=== PATIENT | male | born 1965 | race African-American/Black ===

== ENCOUNTER 2018-02-06 23:47 | Emergency (ER) | payer MEDICARE, OTHER ==
[~2018-02-06] VITALS: Ht 190.5 cm; Wt 110.7 kg
[2018-02-07 00:20] VITALS: BP 156/100
[2018-02-07] MEDS ORDERED: DiphenhydrAMINE 50mg/ml Inj IM ONE (00:30)
[2018-02-07] MEDS ORDERED: HYDROmorphone 1mg/ml Carpuject IM ONE (00:30)
[2018-02-07 00:50] VITALS: BP 156/100
--- NOTE | 2018-02-07 01:05 | Emergency Room Report ---
History of Present Illness General Chief Complaint: Pain Source: Patient Present Illness HPI 52-year-old male presents ED for evaluation. Patient states that he is having neck back and hip pain status post fall 1 week ago. States he fell down 2 flights of stairs. States he had multiple imaging studies done at another hospital which were negative. States he has continued pain. History of bilateral hip replacement. Pain is throbbing, 10 out of 10, nonradiating. No other aggravating or relieving factors. Denies any other associated symptoms Allergies: Coded Allergies: AMOXICILLIN (Verified Allergy, Unknown, 03/11/09) KETOROLAC (Verified Allergy, Unknown, 03/11/09) PROCHLORPERAZINE (Verified Allergy, Unknown, 03/11/09) Patient History Past Medical History: COPD Past Surgical History: other - bilateral hip replacement Pertinent Family History: none Social History: Denies: smoking, alcohol use, drug use Immunizations: UTD Reviewed Nursing Documentation: PMH: Agreed; PSxH: Agreed Nursing Documentation-PMH Hx COPD: Yes Review of Systems All Other Systems: negative except mentioned in HPI Physical Exam Vital Signs Date Time Temp Pulse Resp B/P (MAP) Pulse Ox O2 Delivery O2 Flow Rate FiO2 02/07/18 00:00 98.0 98 18 156/100 98 Room Air 98.1 Sp02 EP Interpretation: reviewed, normal General Appearance: no apparent distress, alert, GCS 15, non-toxic Head: normocephalic, atraumatic Eyes: bilateral eye normal inspection, bilateral eye PERRL ENT: hearing grossly normal, normal pharynx, no angioedema, normal voice Neck: full range of motion, supple/symm/no masses Respiratory: chest non-tender, lungs clear, normal breath sounds, speaking full sentences Cardiovascular #1: regular rate, rhythm, no edema Cardiovascular #2: 2+ carotid (R), 2+ carotid (L), 2+ radial (R), 2+ radial (L) , 2+ dorsalis pedis (R), 2+ dorsalis pedis (L) Gastrointestinal: normal bowel sounds, non tender, soft, non-distended, no guarding, no rebound Rectal: deferred Genitourinary: normal inspection, no CVA tenderness Musculoskeletal: back normal, gait/station normal, normal range of motion, non- tender Neurologic: alert, oriented x3, responsive, motor strength/tone normal, sensory intact, speech normal Psychiatric: judgement/insight normal, memory normal, mood/affect normal, no suicidal/homicidal ideation Reflexes: 3+ bicep (R), 3+ bicep (L), 3+ tricep (R), 3+ tricep (L), 3+ knee (R) , 3+ knee (L) Skin: normal color, no rash, warm/dry, well hydrated Lymphatic: no adenopathy Medical Decision Making Diagnostic Impression: Primary Impression: Chronic pain Qualified Codes: G89.29 - Other chronic pain ER Course Hospital Course 52-year-old male presents ED complaining of neck pain back pain and hip pain status post fall times one week Differential diagnoses include: fx, dislocation, contusion Clinical course Patient placed on stretcher. After initial history and physical I offered to order CT imaging of his neck and back and pelvis. Patient states ER he had CTs done which were negative. Patient is asking for 2 mg of Dilaudid with 50 mg of Benadryl. I reviewed EMR patient has had prior history of multiple visits for pain related complaints but last visit was in 2010 Reviewed cures; patient is receiving multiple narcotic prescriptions on a monthly basis I agreed to provide him with 1 mg Dilaudid. Patient will be subsequently discharged. No additional imaging. No prescriptions. Patient displays understanding Diagnosis - chronic pain Stable and discharged to home. Followup with PMD. Return to ED if symptoms recur or worsen Last Vital Signs Date Time Temp Pulse Resp B/P (MAP) Pulse Ox O2 Delivery O2 Flow Rate FiO2 02/07/18 00:50 98.0 98 18 156/100 98 Room Air 208.4 Status: improved Disposition: HOME, SELF-CARE Condition: Stable Patient Instructions: Chronic Pain Chandana Andre MD Feb 07, 2018 01:05
== END 2018-02-07 00:55 | disposition home or self-care (01) ==
LOC: EMR 02-07 00:10
DX: M54.2 Cervicalgia (principal); M54.9 Dorsalgia, unspecified; M25.552 Pain in left hip; M25.551 Pain in right hip; W10.9XXA Fall (on) (from) unspecified stairs and steps, initial encounter; G89.29 Other chronic pain; Y92.9 Unspecified place or not applicable; Z96.643 Presence of artificial hip joint, bilateral
CPT/HCPCS: 96372; 99283; J1170; J1200

== ENCOUNTER 2018-05-29 05:22 | Emergency (ER) | payer MEDICARE, OTHER ==
[~2018-05-29] VITALS: Ht 190.5 cm; Wt 113.4 kg
[2018-05-29 05:25] VITALS: BP 125/80
[2018-05-29] MEDS ORDERED: QUETIAPINE FUMA25 MG ORAL (05:27)
[2018-05-29] MEDS ORDERED: BENADRYL25 MG ORAL (05:27)
[2018-05-29] MEDS ORDERED: CELEXA20 MG ORAL (05:27)
[2018-05-29] MEDS ORDERED: HYDROMORPHONE ER8 MG PO (05:27)
[2018-05-29] MEDS ORDERED: DEPAKOTE250 MG PO (05:27)
[2018-05-29] MEDS ORDERED: VALIUM2 MG ORAL (05:27)
[2018-05-29] MEDS ORDERED: RESTORIL7.5 MG ORAL (05:27)
[2018-05-29] MEDS ORDERED: HYDROmorphone 1mg/ml Carpuject IM ONE (05:45)
[2018-05-29] MEDS ORDERED: DiphenhydrAMINE 50mg/ml Inj IM ONE (05:45)
[2018-05-29 06:44] VITALS: BP 152/80
[2018-05-29 07:33] VITALS: BP 110/87
--- NOTE | 2018-05-31 06:51 | Emergency Room Report ---
History of Present Illness General Chief Complaint: Pain Source: Patient Present Illness HPI 52-year-old male presents ED for evaluation. Patient brought in by ambulance for bilateral hip pain. Patient had hip replacements performed in 2015 in 2016. Patient states he's been having persistent pain and states he needs revision of both hips. Patient is legally blind. Patient states that he ran out of his pain meds. Does not have an appointment with his PMD yet. Pain is throbbing, 9 out of 10, nonradiating. Denies any recent injury or trauma. No other aggravating relieving factors. Denies any other associated symptoms Allergies: Coded Allergies: AMOXICILLIN (Verified Allergy, Unknown, 03/11/09) KETOROLAC (Verified Allergy, Unknown, 03/11/09) PROCHLORPERAZINE (Verified Allergy, Unknown, 03/11/09) Patient History Past Medical History: psych hx Past Surgical History: other - bilateral hip replacements Pertinent Family History: none Social History: Denies: smoking, alcohol use, drug use Immunizations: UTD Reviewed Nursing Documentation: PMH: Agreed; PSxH: Agreed Nursing Documentation-PMH Hx COPD: Yes History Of Psychiatric Problem: Yes - bipolar, schizoeffective Review of Systems All Other Systems: negative except mentioned in HPI Physical Exam Vital Signs Date Time Temp Pulse Resp B/P (MAP) Pulse Ox O2 Delivery O2 Flow Rate FiO2 05/29/18 05:21 98.2 72 14 125/80 97 Room Air 98.2 Sp02 EP Interpretation: reviewed, normal General Appearance: no apparent distress, alert, GCS 15, non-toxic Head: normocephalic Eyes: bilateral eye other - legally blind ENT: hearing grossly normal, normal pharynx, no angioedema, normal voice Neck: normal inspection Respiratory: normal inspection Cardiovascular #1: normal inspection Gastrointestinal: normal inspection Rectal: deferred Genitourinary: no CVA tenderness Musculoskeletal: normal range of motion, tender - bilateral hip Neurologic: alert, oriented x3, responsive, motor strength/tone normal, sensory intact, speech normal Psychiatric: judgement/insight normal, memory normal, no suicidal/homicidal ideation, anxious Skin: normal inspection Lymphatic: normal inspection Medical Decision Making Diagnostic Impression: Primary Impression: Chronic pain Qualified Codes: G89.29 - Other chronic pain ER Course Hospital Course 52-year-old male presents ED complaining of bilateral hip pain. No evidence of trauma Differential diagnoses include: fracture, dislocation, contusion Clinical course Patient placed on stretcher. After initial history and physical I reviewed EMR. Patient had been here once recently for similar presentation of pain. CURES shows extensive narcotic prescriptions on a monthly basis I discussed this with the patient. I agreed to provide him with one dose of pain medication here but I cannot provide him with prescriptions at this time. Patient needs to follow-up with his pain management for his prescriptions Patient agrees. Pain improved and patient will be safely discharged back to home via ambulance Diagnosis - chronic pain Stable and discharged to home. Followup with PMD. Return to ED if symptoms recur or worsen Last Vital Signs Date Time Temp Pulse Resp B/P (MAP) Pulse Ox O2 Delivery O2 Flow Rate FiO2 05/29/18 07:33 98.2 67 14 110/87 95 Room Air 98.2 Status: improved Disposition: HOME, SELF-CARE Condition: Stable Referrals: NOT CHOSEN IPA/,REFERRING (PCP) Patient Instructions: Chronic Pain Chandana Andre MD May 31, 2018 06:51
== END 2018-05-29 07:34 | disposition home or self-care (01) ==
LOC: EDBD 05:22 → EMR 05:38
DX: G89.29 Other chronic pain (principal); M25.552 Pain in left hip; M25.551 Pain in right hip; J44.9 Chronic obstructive pulmonary disease, unspecified; F25.9 Schizoaffective disorder, unspecified; Z88.0 Allergy status to penicillin; Z88.8 Allergy status to other drugs, medicaments and biological substances; F31.9 Bipolar disorder, unspecified
CPT/HCPCS: 96372; 99283; J1170; J1200

== ENCOUNTER 2019-04-08 03:18 | Emergency (ER) | payer MEDICARE, OTHER ==
[~2019-04-08] VITALS: Ht 190.5 cm; Wt 157.9 kg
[~2019-04-08 03:18] MED LIST: BENADRYL25 MG ORAL; CELEXA20 MG ORAL; DEPAKOTE250 MG PO; HYDROMORPHONE ER8 MG PO; QUETIAPINE FUMA25 MG ORAL; RESTORIL7.5 MG ORAL; VALIUM2 MG ORAL
--- NOTE | 2019-04-08 03:19 | NUR ---
ED Nurse Note: pt brought in by FRANCOIS from bus stop c/c headache and dizziness, pt states he's been having syncopal episode and keeps "blacking out" this week. pt Aa&ox4, gcs=15, skin warm and dry, resp even and unlabored on RA, -n/v/d, ambulates w/ steady gait, will cont monitor.
[2019-04-08 03:41] VITALS: BP 141/74
[2019-04-08] MEDS ORDERED: Acetaminophen 500mg (ES) tab ORAL ONE (04:00)
[2019-04-08] MEDS ORDERED: IBUPROFEN600 MG ORAL (04:00)
--- NOTE | 2019-04-08 04:00 | Emergency Room Report ---
History of Present Illness General Chief Complaint: Headache Source: Patient Present Illness HPI This is a 53-year-old -[place] male who is blind and has chronic pain. He presents with chief complaint of headache. He said this is a chronic issue for him. He had multiple work-up in the past. Usually take oxycodone but his doctor referred him to pain management patients that has been out of his pain medication for the last couple months. Been going to different hospital for pain. Said that his pain is so severe that he passed out. Denies any trauma. Also complained of bilateral hip pain from previous surgery. No nausea no vomiting. Nothing made it better. Nothing made it worse. Allergies: Coded Allergies: AMOXICILLIN (Verified Allergy, Unknown, 03/11/09) KETOROLAC (Verified Allergy, Unknown, 03/11/09) PROCHLORPERAZINE (Verified Allergy, Unknown, 03/11/09) Patient History Past Medical History: see triage record, old chart reviewed Past Surgical History: other Pertinent Family History: none Social History: Denies: smoking Immunizations: other Reviewed Nursing Documentation: PMH: Agreed; PSxH: Agreed Nursing Documentation-PMH Past Medical History: No History, Except For Hx Asthma: Yes Hx COPD: Yes History Of Psychiatric Problem: Yes - BIPOLAR Review of Systems Eye: Denies: eye pain, blurred vision ENT: Denies: ear pain, nose congestion, throat swelling Respiratory: Denies: cough, shortness of breath Cardiovascular: Denies: chest pain, palpitations Gastrointestinal: Denies: abdominal pain, diarrhea, nausea, vomiting Musculoskeletal: Denies: back pain, joint pain Skin: Denies: rash Neurological: Reports: headache; Denies: numbness Endocrine: Denies: increased thirst, increased urine Hematologic/Lymphatic: Denies: easy bruising All Other Systems: negative except mentioned in HPI Physical Exam Vital Signs Date Time Temp Pulse Resp B/P (MAP) Pulse Ox O2 Delivery O2 Flow Rate FiO2 04/08/19 03:16 98.6 98 18 141/74 (96) 100 Room Air Vitals normal Sp02 EP Interpretation: reviewed, normal General Appearance: well appearing, no apparent distress, alert Head: normocephalic, atraumatic Eyes: bilateral eye other - Pt is blind ENT: hearing grossly normal, normal pharynx Neck: full range of motion, supple, no meningismus Respiratory: chest non-tender, lungs clear, normal breath sounds Cardiovascular #1: regular rate, rhythm, no murmur Gastrointestinal: normal bowel sounds, non tender, no mass, no organomegaly, no bruit, non-distended Musculoskeletal: back normal, gait/station normal, normal range of motion Psychiatric: mood/affect normal Skin: warm/dry Medical Decision Making Diagnostic Impression: Primary Impression: Headache Qualified Codes: R51 - Headache Additional Impression: Chronic pain Qualified Codes: G89.4 - Chronic pain syndrome ER Course Pt presents With chronic pain. No focal deficit. No fever. No evidence of meningitis, bleed or neoplastic process. Last Vital Signs Date Time Temp Pulse Resp B/P (MAP) Pulse Ox O2 Delivery O2 Flow Rate FiO2 04/08/19 03:41 98.7 87 18 141/74 100 Room Air Status: improved Disposition: HOME, SELF-CARE Condition: Stable Scripts Ibuprofen* (MOTRIN*) 600 Mg Tablet 600 MG ORAL THREE TIMES A DAY, #30 TAB 0 Refills Prov: Dutch Donaldson MD 04/08/19 Patient Instructions: General Headache Without Cause Additional Instructions: Follow-up with your doctor for refill your pain medication. Return if symptoms worsen. Dutch Donaldson MD Apr 08, 2019 04:00
--- NOTE | 2019-04-08 05:55 | NUR ---
ED Nurse Note: pt cleared to be d/c per ERMD, pt discharge and aftercare instruction provided w/ prescription, pt education done via discussion and handout, pt advised to follow up with pcp or return to ed if changes in condition, pt verbalized understanding and agrees with plan, pt given sandwich and juice, pt states he is going to take bus home, pt ambulatory w/ steady gait, left w/ all belongings.
[2019-04-08 05:57] VITALS: BP 140/76
== END 2019-04-08 05:57 | disposition home or self-care (01) ==
LOC: EDBD 03:18 → EMR 04:14
DX: R51 Headache (principal); G89.4 Chronic pain syndrome; M25.552 Pain in left hip; M25.551 Pain in right hip; J44.9 Chronic obstructive pulmonary disease, unspecified; Z88.0 Allergy status to penicillin; Z88.8 Allergy status to other drugs, medicaments and biological substances
CPT/HCPCS: 93005; 99282

== ENCOUNTER 2019-09-20 04:37 | Emergency (ER) | payer MEDICARE, OTHER ==
[~2019-09-20] VITALS: Ht 190.5 cm; Wt 112.5 kg
[~2019-09-20 04:37] MED LIST changes: +IBUPROFEN600 MG ORAL
--- NOTE | 2019-09-20 04:40 | NUR ---
ED Nurse Note: Patient brought in by private ambulance, RA 56, from home with complaints of chronic back pain, hip pain (in need of surgery) and migraine. Will continue to monitor.
[2019-09-20 04:44] VITALS: BP 149/88
[2019-09-20] MEDS ORDERED: XANAX0.25 MG ORAL (04:44)
--- NOTE | 2019-09-20 04:57 | Emergency Room Report ---
History of Present Illness General Chief Complaint: Pain Source: Patient Present Illness HPI This is a 53-year-old male with history of chronic pain. He is legally blind. He complained of migraine headache. There is a chronic issue for him. He said he is usually take [place] or oxycodone at home. Pain is been there for 2 days. Pain is diffuse. He has no fever chills but has nausea but no vomiting. No diarrhea. Also complained of bilateral hip pain. He said he has hip surgery in the past and knee surgery for scar tissue. Does not have a pain specialist. Denies trauma. Denies any incontinence of bowel or urine. Patient requesting 3 mg of Dilaudid and 50 mg of benadryl. Allergies: Coded Allergies: AMOXICILLIN (Verified Allergy, Unknown, 03/11/09) KETOROLAC (Verified Allergy, Unknown, 03/11/09) PENICILLINS (Verified Allergy, Unknown, 09/20/19) PROCHLORPERAZINE (Verified Allergy, Unknown, 03/11/09) Patient History Past Medical History: see triage record, old chart reviewed Past Surgical History: other Pertinent Family History: none Social History: Denies: smoking Immunizations: other Reviewed Nursing Documentation: PMH: Agreed; PSxH: Agreed Nursing Documentation-PMH Past Medical History: No History, Except For Hx Asthma: Yes Hx COPD: Yes Review of Systems Eye: Denies: eye pain, blurred vision ENT: Denies: ear pain, nose congestion, throat swelling Respiratory: Denies: cough, shortness of breath Cardiovascular: Denies: chest pain, palpitations Gastrointestinal: Denies: abdominal pain, diarrhea, nausea, vomiting Musculoskeletal: Reports: joint pain; Denies: back pain Skin: Denies: rash Neurological: Reports: headache; Denies: numbness Endocrine: Denies: increased thirst, increased urine Hematologic/Lymphatic: Denies: easy bruising All Other Systems: negative except mentioned in HPI Physical Exam Vital Signs Date Time Temp Pulse Resp B/P (MAP) Pulse Ox O2 Delivery O2 Flow Rate FiO2 09/20/19 04:39 97.9 66 16 149/88 (108) 97 Room Air Vitals with high blood pressure Sp02 EP Interpretation: reviewed, normal General Appearance: well appearing, no apparent distress, alert Head: normocephalic, atraumatic ENT: hearing grossly normal, normal pharynx Neck: full range of motion, supple, no meningismus Respiratory: chest non-tender, lungs clear, normal breath sounds Cardiovascular #1: regular rate, rhythm, no murmur Gastrointestinal: normal bowel sounds, non tender, no mass, no organomegaly, no bruit, non-distended Musculoskeletal: back normal, normal range of motion Psychiatric: mood/affect normal Medical Decision Making Diagnostic Impression: Primary Impression: Headache Qualified Codes: R51 - Headache Additional Impression: Chronic pain Qualified Codes: G89.4 - Chronic pain syndrome ER Course Patient presents with chief complaint of chronic pain. I see no new complaint. He said he had a work-up in the past with CT head. No evidence of meningitis , bleed or neoplastic process. No trauma to warrant x-rays of his hip. No evidence of any dislocation or septic joint. Will discharge home. Last Vital Signs Date Time Temp Pulse Resp B/P (MAP) Pulse Ox O2 Delivery O2 Flow Rate FiO2 09/20/19 04:44 97.9 78 16 149/88 97 Room Air Status: improved Disposition: HOME, SELF-CARE Condition: Stable Additional Instructions: Follow-up with your doctor in 7 days. You may benefit from a pain specialist referral. Return if symptoms worsen. Dutch Donaldson MD Sep 20, 2019 04:57
[2019-09-20] MEDS ORDERED: HYDROcodone/Acetamin 5/325 tab ORAL ONE (05:00)
--- NOTE | 2019-09-20 05:21 | NUR ---
ED Nurse Note: Patient tolerated medication administration well. patient plans to be picked up in the morning by a friend later in the morning. Will continue to monitor patient for chronic pain.
[2019-09-20 06:41] VITALS: BP 149/88
--- NOTE | 2019-09-20 06:41 | NUR ---
ED Nurse Note: Patient departed with all belongings.
[2019-09-20] MEDS ORDERED: ACETAMINOPHEN325 M1 ORAL (10:45)
== END 2019-09-20 06:41 | disposition home or self-care (01) ==
LOC: EDBD 04:37 → EMR 05:24
DX: G89.4 Chronic pain syndrome (principal); R51 Headache; J44.9 Chronic obstructive pulmonary disease, unspecified; H54.8 Legal blindness, as defined in USA; Z88.1 Allergy status to other antibiotic agents; Z88.0 Allergy status to penicillin; Z88.8 Allergy status to other drugs, medicaments and biological substances
CPT/HCPCS: 99282

== ENCOUNTER 2019-09-20 10:10 | Emergency (ER) | payer MEDICARE, OTHER ==
[~2019-09-20] VITALS: Ht 190.5 cm; Wt 111.1 kg
[~2019-09-20 10:10] MED LIST changes: +XANAX0.25 MG ORAL
[2019-09-20] MEDS ORDERED: ACETAMINOPHEN325 M1 ORAL (10:45)
[2019-09-20] MEDS ORDERED: Acetaminophen 500mg (ES) tab ORAL ONE (10:45)
--- NOTE | 2019-09-20 10:53 | Emergency Room Report ---
History of Present Illness General Chief Complaint: Pain Source: Patient Present Illness HPI Disclaimer: Please note that this report is being documented using [employer] technology. This can lead to erroneous entry secondary to incorrect interpretation by the dictating instrument. HPI: 54-year-old male with a history of prior stroke, chronic hip pain and chronic headaches presents for evaluation of headache and hip pain. He was seen in the emergency department several hours ago with similar complaints. There is no new trauma. States his headache is generalized complaining of some photophobia which is common of his typical migraine headaches. He does not follow with anyone for migraines and does not regularly see a neurologist. 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 Denies any numbness or tingling. Denies any changes in stability. States he usually takes oxycodone for his pain but he ran out. He is requesting Dilaudid, IV Benadryl which he states usually resolves his headaches. Denies any fever, neck stiffness, rash, vomiting or diarrhea currently. PMH: Chronic headaches, chronic hip pain, strokes, psychiatric disorder, legally blind PSH: Bilateral hip replacement Allergies: Amoxicillin, Toradol, penicillin Social Hx: Denies drug or alcohol abuse Allergies: Coded Allergies: AMOXICILLIN (Verified Allergy, Unknown, 03/11/09) KETOROLAC (Verified Allergy, Unknown, 03/11/09) PENICILLINS (Verified Allergy, Unknown, 09/20/19) PROCHLORPERAZINE (Verified Allergy, Unknown, 03/11/09) Nursing Documentation-PMH Past Medical History: No History, Except For Hx Asthma: Yes Hx COPD: Yes Review of Systems All Other Systems: negative except mentioned in HPI Physical Exam Vital Signs Date Time Temp Pulse Resp B/P (MAP) Pulse Ox O2 Delivery O2 Flow Rate FiO2 09/20/19 10:21 97.5 82 16 152/83 (106) 98 Room Air General: Awake and alert, no acute distress HEENT: NC/AT. No facial or scalp hematomas, lacerations or abrasions. Pupils are 5 mm bilaterally. Reactive to light. EOMI. diminished vision bilaterally. There is a lateral gaze preference in the left eye. Moist mucous membranes Cardiovascular: RRR. S1 and S2 normal. No murmur appreciated Resp: Normal work of breathing. No cough, wheezing or crackles appreciated Abdomen: Abdomen is soft, nondistended. Nontender Skin: Intact. No abrasions, laceration or rash over the exposed skin MSK: Normal tone and bulk. Moving all extremities. No obvious deformity. Neuro: Awake and alert. Mentating appropriately. Back/Spine: No midline tenderness in the cervical, thoracic or lumbosacral spine. No cervical rigidity. Medical Decision Making Diagnostic Impression: Primary Impression: Chronic hip pain Additional Impression: Headache ER Course 53-year-old male presents for evaluation of chronic headaches and chronic knee pain. He is requesting 2 to 3 mg of IV Dilaudid as well as 50 mg of IV Benadryl. I explained to patient that this was not appropriate for treatment of chronic pain and chronic headaches to which point he compromised to IV morphine and IV Benadryl and then [place]. Review of the patient's cures report shows a recent fill of hydrocodone for 12 tablets on 09/13. Seeing if there is no new trauma and the patient's complaints are chronic I see no indication for emergent head or hip imaging at this time. No evidence of infective process such as meningitis or encephalitis and no evidence of space-occupying lesions on clinical exam. Patient will be discharged to follow-up with PMD or clinic. Will give him Tylenol prior to departure as he states he is allergic to Motrin and Toradol. Discussed reasons to return to the emergency department. He understands and agrees with treatment plan. Last Vital Signs Date Time Temp Pulse Resp B/P (MAP) Pulse Ox O2 Delivery O2 Flow Rate FiO2 09/20/19 10:21 97.5 82 16 152/83 (106) 98 Room Air Disposition: HOME, SELF-CARE Condition: Stable Scripts Acetaminophen* (ACETAMINOPHEN 325MG TABLET*) 325 Mg Tablet 650 MG ORAL Q6H PRN for For Headache for 7 Days, #20 TAB Prov: Paul Kerns MD 09/20/19 Referrals: [facility] Alice Zelaya. [facility] Open 24 hour /7 days a week by Appointment Only [address] [facility] [address] [facility] [id number] Patient Instructions: Headache and Arthritis Additional Instructions: Your evaluated in the emergency department for chronic hip pain and chronic headaches. You need to follow-up with your primary doctor to address both of these issues. Continue with your current pain medication regimen. Discussed with your doctor whether your medication needs to be adjusted. Continue all other medications as prescribed. Return to the emergency department new or worsening symptoms. Paul Kerns MD Sep 20, 2019 10:53
[2019-09-20 10:59] VITALS: BP 152/83
[2019-09-20 11:00] VITALS: BP 152/83
--- NOTE | 2019-09-20 11:02 | NUR ---
ED Nurse Note: INGRID dozier done pt medicated . for headache and bi-lat hip and back pain .
--- NOTE | 2019-09-20 11:03 | NUR ---
ED Nurse Note: Pt cleared by health care Provider for discharge. DC instructions/prescription was given and explained to pt and verbalized understanding of teachings. All medical deviecs such as ID band removed. Pt is AAO x4, ambulatory and left with all personal belongings.
== END 2019-09-20 11:05 | disposition home or self-care (01) ==
LOC: EMR 10:39
DX: G89.29 Other chronic pain (principal); M25.559 Pain in unspecified hip; R51 Headache; J44.9 Chronic obstructive pulmonary disease, unspecified; H54.8 Legal blindness, as defined in USA; H49.9 Unspecified paralytic strabismus; Z88.1 Allergy status to other antibiotic agents; Z88.8 Allergy status to other drugs, medicaments and biological substances; Z86.73 Personal history of transient ischemic attack (TIA), and cerebral infarction without residual deficits
CPT/HCPCS: 99282

== ENCOUNTER 2020-07-25 20:05 | Emergency (ER) | payer MEDICARE, OTHER ==
[~2020-07-25] VITALS: Ht 190.5 cm; Wt 108.9 kg
[~2020-07-25 20:05] MED LIST changes: +ACETAMINOPHEN325 M1 ORAL
[2020-07-25 20:20] VITALS: BP 159/90
--- NOTE | 2020-07-25 21:12 | Emergency Room Report ---
History of Present Illness General Chief Complaint: Abdominal Pain Source: Patient Present Illness HPI Disclaimer: Please note that this report is being documented using [employer] technology. This can lead to erroneous entry secondary to incorrect interpretation by the dictating instrument. HPI: 54-year-old male history of psychiatric disease, chronic pain syndrome presents for abdominal pain. He states he has had abdominal pain for 2 weeks associated with constipation. No fevers no nausea no vomiting. States he has been having difficulty with bowel movements for 2 weeks, last bowel movement a few days ago patient is passing gas. Patient states "I feel blocked" Allergies: Coded Allergies: AMOXICILLIN (Verified Allergy, Unknown, 03/11/09) KETOROLAC (Verified Allergy, Unknown, 03/11/09) PENICILLINS (Verified Allergy, Unknown, 09/20/19) PROCHLORPERAZINE (Verified Allergy, Unknown, 03/11/09) COVID-19 Screening Contact w/high risk pt: No Experienced COVID-19 symptoms?: No COVID-19 Testing performed INSOLE TACK PULLER HAND: No Patient History Reviewed Nursing Documentation: PMH: Agreed; PSxH: Agreed Nursing Documentation-PMH Hx Asthma: Yes Hx COPD: Yes Review of Systems All Other Systems: negative except mentioned in HPI Physical Exam Vital Signs Date Time Temp Pulse Resp B/P (MAP) Pulse Ox O2 Delivery O2 Flow Rate FiO2 07/25/20 20:15 98.2 86 16 159/90 (113) 96 Room Air Sp02 EP Interpretation: reviewed, normal General Appearance: well appearing, no apparent distress Head: normocephalic, atraumatic Eyes: bilateral eye PERRL, bilateral eye EOMI ENT: hearing grossly normal, moist mucus membranes Neck: full range of motion, supple Respiratory: lungs clear, normal breath sounds, no rhonchi, no respiratory distress, no retraction, no wheezing Cardiovascular #1: normal peripheral pulses, regular rate, rhythm, no murmur Gastrointestinal: non tender, soft, non-distended, no guarding, tenderness - Mild left lower quadrant tenderness Neurologic: alert, oriented x3, no focal defects Skin: normal color, warm/dry Medical Decision Making ER Course MDM: Differential diagnosis included but not limited to constipation, colitis, diverticulitis, obstruction to name a few Clinical course- Labs - On reevaluation: Plan- Last Vital Signs Date Time Temp Pulse Resp B/P (MAP) Pulse Ox O2 Delivery O2 Flow Rate FiO2 10/2/20 20:20 86 16 Room Air 07/25/20 20:20 98.2 159/90 96 Referrals: NON PHYSICIAN (PCP) Tra Kennedy M.D. Jul 25, 2020 21:12
[2020-07-25 21:20] LABS: BASOPHILS % (AUTO) 2.6 % (0.0-2.0); EOSINOPHILS % (AUTO) 0.4 % (0.0-3.0); HEMATOCRIT 50.2 % (42.0-52.0); HEMOGLOBIN 16.6 G/DL (14.2-18.0); LYMPHOCYTES % (AUTO) 28.2 % (20.0-45.0); MEAN CORPUSCULAR VOLUME 91 FL (80-99); MONOCYTES % (AUTO) 9.2 % (1.0-10.0); NEUTROPHILS % (AUTO) 59.5 % (45.0-75.0); PLATELET COUNT 108 K/UL (150-450); RED BLOOD COUNT 5.52 M/UL (4.70-6.10); RED CELL DISTRIBUTION WIDTH 12.8 % (11.6-14.8); WHITE BLOOD COUNT 7.8 K/UL (4.8-10.8)
[2020-07-25 21:39] LABS: ANION GAP 9 mmol/L (5-15); BLOOD UREA NITROGEN 17 mg/dL (7-18); CALCIUM 9.9 MG/DL (8.5-10.1); CARBON DIOXIDE 27 MMOL/L (21-32); CHLORIDE 105 MMOL/L (98-107); POTASSIUM 3.8 MMOL/L (3.5-5.1); SODIUM 141 MMOL/L (136-145)
[2020-07-25 21:43] LABS: ALANINE AMINOTRANSFERASE 28 U/L (12-78); ALBUMIN 4.3 G/DL (3.4-5.0); ALKALINE PHOSPHATASE 80 U/L (46-116); ASPARTATE AMINO TRANSFERASE 30 U/L (15-37)
--- NOTE | 2020-07-25 21:53 | Diagnostic Imaging Report ---
EXAM: CT Abdomen and Pelvis Without Intravenous Contrast CLINICAL HISTORY: PAIN TECHNIQUE: Axial computed tomography images of the abdomen and pelvis without intravenous contrast. CTDI is 10 mGy and DLP is 549.9 mGy-cm. One or more of the following dose reduction techniques were used: automated exposure control, adjustment of the mA and/or kV according to patient size, use of iterative reconstruction technique. COMPARISON: No relevant prior studies available. FINDINGS: Lung bases: Unremarkable. No mass. No consolidation. ABDOMEN: Liver: Unremarkable. Gallbladder and bile ducts: Unremarkable. No calcified stones. No ductal dilation. Pancreas: Unremarkable. No ductal dilation. Spleen: Unremarkable. No splenomegaly. Adrenals: Unremarkable. No mass. Kidneys and ureters: Unremarkable. No obstructing stones. No hydronephrosis. Stomach and bowel: Unremarkable. No obstruction. No mucosal thickening. PELVIS: Appendix: No findings to suggest acute appendicitis. Bladder: Unremarkable. No stones. Reproductive: Unremarkable as visualized. ABDOMEN and PELVIS: Intraperitoneal space: Unremarkable. No free air. No significant fluid collection. Bones/joints: Bilateral hip arthroplasties create streak artifact that limited detailed evaluation of the pelvis. No acute fracture. No dislocation. Soft tissues: Unremarkable. Vasculature: Unremarkable. No abdominal aortic aneurysm. Lymph nodes: Unremarkable. No enlarged lymph nodes. IMPRESSION: No acute findings in the abdomen or pelvis.
[2020-07-25] MEDS ORDERED: FLEET ENEMA133 ML RECTAL (22:09)
[2020-07-25 22:20] VITALS: BP 148/85
== END 2020-07-25 22:20 | disposition home or self-care (01) ==
LOC: EMR 20:34
DX: R10.9 Unspecified abdominal pain (principal); K59.00 Constipation, unspecified; Z88.0 Allergy status to penicillin; J44.9 Chronic obstructive pulmonary disease, unspecified; Z96.643 Presence of artificial hip joint, bilateral
CPT/HCPCS: 36415; 74176; 80053; 83690; 85025; 99284

== ENCOUNTER 2020-07-26 09:21 | Emergency (ER) | payer MEDICARE, OTHER ==
[~2020-07-26] VITALS: Ht 190.5 cm; Wt 108.9 kg
[~2020-07-26 09:21] MED LIST changes: +FLEET ENEMA133 ML RECTAL
[2020-07-26 09:48] VITALS: BP 162/99
--- NOTE | 2020-07-26 09:49 | NUR ---
ED Nurse Note:pt. came from home with feeling depressed and saying that he thinking about walking in to traffic, pt. is ambulatory with cane, c/o headache and legs pain, A/Ox4, his belongings were placed to locker 1, room checked for suisidal precausion
--- NOTE | 2020-07-26 09:51 | Emergency Room Report ---
History of Present Illness General Chief Complaint: Behavioral Complaint Source: Patient Present Illness HPI Patient represents to the emergency department after being evaluated yesterday for constipation. His complaint today is that he feels suicidal. Plan is to walk into traffic. He states he almost did this last night. He had attempted several years ago. This resulted in fracturing his right ankle. He has chronic pain there. He usually takes [place] 7-1/2 mg. He ran out of [place] 2 days ago. The pain is excruciating at this time and radiates somewhat into his leg. He denies calf pain. He also complains about a headache. Regarding the constipation he was able to move his bowels at this morning. He denies any blood in his stool. 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 The patient denies exposure to COVID-19 positive contacts. No fevers, chills, sore throat, chest pain, palpitations, nausea, vomiting, dysuria, abdominal pain, shortness of breath, rashes, depression, anxiety, dizziness, headache. Allergies: Coded Allergies: AMOXICILLIN (Verified Allergy, Unknown, 03/11/09) KETOROLAC (Verified Allergy, Unknown, 03/11/09) PENICILLINS (Verified Allergy, Unknown, 09/20/19) PROCHLORPERAZINE (Verified Allergy, Unknown, 03/11/09) COVID-19 Screening Contact w/high risk pt: No Experienced COVID-19 symptoms?: No COVID-19 Testing performed BENCH PATTERNMAKER METAL: No Patient History Past Medical History: see triage record Past Surgical History: other - R ankle fracture Social History: Reports: smoking, drug use - [facility] Social History Narrative Lives with brother Reviewed Nursing Documentation: PMH: Agreed; PSxH: Agreed Nursing Documentation-PM Past Medical History: No History, Except For Hx Asthma: Yes Hx COPD: Yes Review of Systems All Other Systems: negative except mentioned in HPI Physical Exam Vital Signs Date Time Temp Pulse Resp B/P (MAP) Pulse Ox O2 Delivery O2 Flow Rate FiO2 07/26/20 09:34 98.1 72 16 162/99 (120) 98 Room Air Sp02 EP Interpretation: reviewed, normal General Appearance: well appearing, no apparent distress, GCS 15, non-toxic Eyes: bilateral eye abnormal EOM, bilateral eye other - Blind ENT: moist mucus membranes Neck: full range of motion, supple Respiratory: chest non-tender, lungs clear, normal breath sounds Cardiovascular #1: regular rate, rhythm, no edema Cardiovascular #2: 2+ radial (R) Gastrointestinal: non tender, soft, no mass Genitourinary: no CVA tenderness Musculoskeletal: back normal, no calf tenderness, moves extm spontaneously, tender - Right ankle Neurologic: non ferrous material handler III-XII nml as tested - Except disconjugate gaze and blindness, oriented x3, sensory intact, cerebellar normal, speech normal Psychiatric: no delusions, depressed affect Suicide Risk Assessment: Suicidal Ideation: Yes Had intent to initiate attempt: Yes Pt's plan for suicide attempt: Yes Has means to complete attempt: Yes Skin: warm/dry, wd healing/no infection noted, other - Well-healed scar right ankle Medical Decision Making Diagnostic Impression: Primary Impression: Suicidal ideation Additional Impressions: Exacerbation chronic pain Substance abuse ER Course Patient represents to the emergency department now with complaint of suicidal ideation. Differential includes opiate withdrawal, electrolyte imbalance, exacerbation of chronic depression, medication noncompliance amongst others. Patient has plan and has previous suicide attempt. Evaluation with EKG, and labs. Patient requesting pain medication. Also is requesting Valium or Ativan. [place] will be administered along with Vistaril. A sitter has been ordered. Patient needs to be medically cleared. EKG sinus rhythm and normal EKG. CBC normal. CMP normal. Normal troponin. Urinalysis remarkable for ketones. Urine tox positive for opiates, benzos, c ocaine and THC. Patient eating and resting calmly. Still has suicidal ideation. Patient medically cleared for psychiatric admission. 1247 Laboratory Tests Test 07/26/20 10:00 07/26/20 11:25 White Blood Count 6.1 K/UL (4.8-10.8) Red Blood Count 5.35 M/UL (4.70-6.10) Hemoglobin 16.0 G/DL (14.2-18.0) Hematocrit 45.5 % (42.0-52.0) Mean Corpuscular Volume 85 FL (80-99) Mean Corpuscular Hemoglobin 29.9 PG (27.0-31.0) Mean Corpuscular Hemoglobin Concent 35.1 G/DL (32.0-36.0) Red Cell Distribution Width 12.5 % (11.6-14.8) Platelet Count 181 K/UL (150-450) # Mean Platelet Volume 6.3 FL (6.5-10.1) L Neutrophils (%) (Auto) 41.8 % (45.0-75.0) L Lymphocytes (%) (Auto) 38.0 % (20.0-45.0) Monocytes (%) (Auto) 14.7 % (1.0-10.0) H Eosinophils (%) (Auto) 2.9 % (0.0-3.0) Basophils (%) (Auto) 2.7 % (0.0-2.0) H Sodium Level 140 MMOL/L (136-145) Potassium Level 3.6 MMOL/L (3.5-5.1) Chloride Level 104 MMOL/L (98-107) Carbon Dioxide Level 27 MMOL/L (21-32) Anion Gap 10 mmol/L (5-15) Blood Urea Nitrogen 15 mg/dL (7-18) Creatinine 0.9 MG/DL (0.55-1.30) Estimated Glomerular Filtration Rate > 60 mL/min (>60) Glucose Level 98 MG/DL (74-106) Calcium Level 8.9 MG/DL (8.5-10.1) Total Bilirubin 0.9 MG/DL (0.2-1.0) Aspartate Amino Transferase (AST) 29 U/L (15-37) Alanine Aminotransferase (ALT) 25 U/L (12-78) Alkaline Phosphatase 74 U/L (46-116) Troponin I 0.004 ng/mL (0.000-0.056) Total Protein 7.8 G/DL (6.4-8.2) Albumin 3.9 G/DL (3.4-5.0) Globulin 3.9 g/dL Albumin/Globulin Ratio 1.0 (1.0-2.7) Salicylates Level 0.4 ug/mL (2.8-20) L Acetaminophen Level < 2 MCG/ML (10-30) L Serum Alcohol < 3 mg/dL Urine Color [place] Urine Appearance Clear Urine pH 5 (4.5-8.0) Urine Specific [place] 1.020 (1.005-1.035) Urine Protein 2+ (NEGATIVE) H Urine Glucose (UA) Negative (NEGATIVE) Urine Ketones 1+ (NEGATIVE) H Urine Blood Negative (NEGATIVE) Urine Nitrite Negative (NEGATIVE) Urine Bilirubin Negative (NEGATIVE) Urine Ictotest Negative (NEGATIVE) Urine Urobilinogen 1 MG/DL (0.0-1.0) H Urine Leukocyte Esterase 1+ (NEGATIVE) H Urine RBC 0-2 /HPF (0 - 0) H Urine WBC 0-2 /HPF (0 - 0) Urine Squamous Epithelial Cells None /LPF (NONE/OCC) Urine Bacteria None /HPF (NONE) Urine Opiates Screen Positive (NEGATIVE) H Urine Barbiturates Screen Negative (NEGATIVE) Phencyclidine (PCP) Screen Negative (NEGATIVE) Urine Amphetamines Screen Negative (NEGATIVE) Urine Benzodiazepines Screen Positive (NEGATIVE) H Urine Cocaine Screen Positive (NEGATIVE) H Urine Marijuana (THC) Screen Positive (NEGATIVE) H Microbiology Date/Time Source Procedure Growth Status 07/26/20 10:05 Nasopharynx SARS-CoV-2 RdRp Gene Assay - Final Complete EKG Diagnostic Results Rate: normal Rhythm: NSR ST Segments: no acute changes Rhythm Strip Diag. Results EP Interpretation: yes Rhythm: NSR, no PVC's, no ectopy Laboratory Tests Test 07/26/20 10:00 07/26/20 11:25 White Blood Count 6.1 K/UL (4.8-10.8) Red Blood Count 5.35 M/UL (4.70-6.10) Hemoglobin 16.0 G/DL (14.2-18.0) Hematocrit 45.5 % (42.0-52.0) Mean Corpuscular Volume 85 FL (80-99) Mean Corpuscular Hemoglobin 29.9 PG (27.0-31.0) Mean Corpuscular Hemoglobin Concent 35.1 G/DL (32.0-36.0) Red Cell Distribution Width 12.5 % (11.6-14.8) Platelet Count 181 K/UL (150-450) # Mean Platelet Volume 6.3 FL (6.5-10.1) L Neutrophils (%) (Auto) 41.8 % (45.0-75.0) L Lymphocytes (%) (Auto) 38.0 % (20.0-45.0) Monocytes (%) (Auto) 14.7 % (1.0-10.0) H Eosinophils (%) (Auto) 2.9 % (0.0-3.0) Basophils (%) (Auto) 2.7 % (0.0-2.0) H Sodium Level 140 MMOL/L (136-145) Potassium Level 3.6 MMOL/L (3.5-5.1) Chloride Level 104 MMOL/L (98-107) Carbon Dioxide Level 27 MMOL/L (21-32) Anion Gap 10 mmol/L (5-15) Blood Urea Nitrogen 15 mg/dL (7-18) Creatinine 0.9 MG/DL (0.55-1.30) Estimated Glomerular Filtration Rate > 60 mL/min (>60) Glucose Level 98 MG/DL (74-106) Calcium Level 8.9 MG/DL (8.5-10.1) Total Bilirubin 0.9 MG/DL (0.2-1.0) Aspartate Amino Transferase (AST) 29 U/L (15-37) Alanine Aminotransferase (ALT) 25 U/L (12-78) Alkaline Phosphatase 74 U/L (46-116) Troponin I 0.004 ng/mL (0.000-0.056) Total Protein 7.8 G/DL (6.4-8.2) Albumin 3.9 G/DL (3.4-5.0) Globulin 3.9 g/dL Albumin/Globulin Ratio 1.0 (1.0-2.7) Salicylates Level 0.4 ug/mL (2.8-20) L Acetaminophen Level < 2 MCG/ML (10-30) L Serum Alcohol < 3 mg/dL Urine Color [place] Urine Appearance Clear Urine pH 5 (4.5-8.0) Urine Specific [place] 1.020 (1.005-1.035) Urine Protein 2+ (NEGATIVE) H Urine Glucose (UA) Negative (NEGATIVE) Urine Ketones 1+ (NEGATIVE) H Urine Blood Negative (NEGATIVE) Urine Nitrite Negative (NEGATIVE) Urine Bilirubin Negative (NEGATIVE) Urine Ictotest Negative (NEGATIVE) Urine Urobilinogen 1 MG/DL (0.0-1.0) H Urine Leukocyte Esterase 1+ (NEGATIVE) H Urine RBC 0-2 /HPF (0 - 0) H Urine WBC 0-2 /HPF (0 - 0) Urine Squamous Epithelial Cells None /LPF (NONE/OCC) Urine Bacteria None /HPF (NONE) Urine Opiates Screen Positive (NEGATIVE) H Urine Barbiturates Screen Negative (NEGATIVE) Phencyclidine (PCP) Screen Negative (NEGATIVE) Urine Amphetamines Screen Negative (NEGATIVE) Urine Benzodiazepines Screen Positive (NEGATIVE) H Urine Cocaine Screen Positive (NEGATIVE) H Urine Marijuana (THC) Screen Positive (NEGATIVE) H Microbiology Date/Time Source Procedure Growth Status 07/26/20 10:05 Nasopharynx SARS-CoV-2 RdRp Gene Assay - Final Complete Status: improved Referrals: NOT CHOSEN IPA/,REFERRING (PCP) Michael Iniguez MD Jul 26, 2020 09:51
[2020-07-26] MEDS ORDERED: HYDROcodone/Acetamin 7.5/325 tab ORAL ONE ×2 (10:00→16:45)
--- NOTE | 2020-07-26 10:09 | NUR ---
ED Nurse Note:blood and covid swab sent to labs, pt. given food and pain meds, sitter is by the room
[2020-07-26 10:36] LABS: BASOPHILS % (AUTO) 2.7 % (0.0-2.0); EOSINOPHILS % (AUTO) 2.9 % (0.0-3.0); HEMATOCRIT 45.5 % (42.0-52.0); MEAN CORPUSCULAR VOLUME 85 FL (80-99); MONOCYTES % (AUTO) 14.7 % (1.0-10.0); NEUTROPHILS % (AUTO) 41.8 % (45.0-75.0); PLATELET COUNT 181 K/UL (150-450); RED BLOOD COUNT 5.35 M/UL (4.70-6.10); RED CELL DISTRIBUTION WIDTH 12.5 % (11.6-14.8); WHITE BLOOD COUNT 6.1 K/UL (4.8-10.8)
[2020-07-26 10:54] LABS: ANION GAP 10 mmol/L (5-15); BLOOD UREA NITROGEN 15 mg/dL (7-18); CALCIUM 8.9 MG/DL (8.5-10.1); CARBON DIOXIDE 27 MMOL/L (21-32); CHLORIDE 104 MMOL/L (98-107); CREATININE 0.9 MG/DL (0.55-1.30); POTASSIUM 3.6 MMOL/L (3.5-5.1); SODIUM 140 MMOL/L (136-145)
[2020-07-26 10:58] LABS: ALANINE AMINOTRANSFERASE 25 U/L (12-78); ALBUMIN 3.9 G/DL (3.4-5.0); ALKALINE PHOSPHATASE 74 U/L (46-116); ASPARTATE AMINO TRANSFERASE 29 U/L (15-37); BILIRUBIN,TOTAL 0.9 MG/DL (0.2-1.0)
[2020-07-26 12:13] VITALS: BP 157/98
[2020-07-26 12:31] LABS: APPEARANCE,URINE CLEAR; BILIRUBIN, URINE NEGATIVE (NEGATIVE); COLOR,URINE AMBER; GLUCOSE, URINE (UA) NEGATIVE (NEGATIVE); KETONES,URINE 1+ (NEGATIVE); LEUKOCYTE ESTERASE ,URINE 1+ (NEGATIVE); NITRITE,URINE NEGATIVE (NEGATIVE); PH,URINE 5 (4.5-8.0); PROTEIN,URINE 2+ (NEGATIVE); UROBILINOGEN,URINE 1 MG/DL (0.0-1.0)
--- NOTE | 2020-07-26 12:32 | NUR ---
ED Nurse Note:lunch tray was provided to pt.
[2020-07-26 16:13] VITALS: BP_SYST 118; BP_SYST 153; BP_DIAS 63; BP_DIAS 96
--- NOTE | 2020-07-26 16:15 | NUR ---
ED Nurse Note:pt. is in the room sleeping no signs of distress
--- NOTE | 2020-07-26 19:05 | NUR ---
ED Nurse Note:called report to [facility], given to superviser Omaira
--- NOTE | 2020-07-26 19:09 | NUR ---
ED Nurse Note: received report from Anna REYNOSO.
[2020-07-26 20:45] VITALS: BP 139/79
--- NOTE | 2020-07-26 20:45 | NUR ---
TRANSFER TO FLOOR: Patient transferred to [facility] via [facility]. Report given to RN at [facility]. Belongings sent with [facility]
--- NOTE | 2020-07-29 17:10 | Cardiology Report ---
APPROVED REPORT EKG Measurement Heart [id number] CT [id number] <Conclusion> Normal sinus rhythm Normal ECG
== END 2020-07-26 20:45 ==
LOC: EMR 09:45
DX: R45.851 Suicidal ideations (principal); G89.29 Other chronic pain; F19.10 Other psychoactive substance abuse, uncomplicated; K59.00 Constipation, unspecified; Z88.0 Allergy status to penicillin; Z88.8 Allergy status to other drugs, medicaments and biological substances; F17.200 Nicotine dependence, unspecified, uncomplicated; R51.9 Headache, unspecified; J44.9 Chronic obstructive pulmonary disease, unspecified; H54.7 Unspecified visual loss
CPT/HCPCS: 36415; 80053; 80307; 81003; 84484; 85025; 93005; 99284; G0480; U0002